=== PATIENT | male | born 1935 | race Hispanic/Latino ===

== ENCOUNTER 2019-04-19 09:42 | Emergency (ER) | payer MEDICARE ==
[2019-04-19 10:13] LABS: #Basophils 0.1 thou/uL (0.0-0.2); #Eosinphils 0.2 thou/uL (0.0-0.7); #Lymphocytes 2.2 thou/uL (1.20-3.40); #Monocytes 0.5 thou/uL (0.11-0.59); #Neutrophils 3.9 thou/uL (1.40-6.50); %Basophils 0.8 % (0.0-1.0); %Eosinophils 2.7 % (0.0-10.0); %Lymphocytes 32.4 % (21.0-51.0); %Monocytes 7.4 % (0.0-10.0); %Neutrophils 56.7 % (42.0-75.0); Hemoglobin 11.1 g/dL (14.0-18.0); Mean Corpuscular Hemoglobin 32.9 pg (27.0-31.0); Mean Corpuscular Volume 99.6 fL (78.0-98.0); Mean Platelet Volume 7.6 fL (7.4-10.4); Platelet Count 225 thou/uL (130-400); RBC Distribution Width 12.8 % (11.5-14.5); Red Blood Cell (RBC) Count 3.37 mill/uL (4.70-6.10); White Blood Cell (WBC) Count 6.9 thou/uL (4.8-10.8)
--- NOTE | 2019-04-19 10:21 | RAD ---
Exam: Chest one view HISTORY:Fever Comparison: 02/13/2017 FINDINGS: Lungs: No masses or consolidation. Cardiac silhouette: Normal size Pulmonary vessels: Normal Pleural Spaces: Clear Pneumothorax: None Vascular calcification is present. Osseous abnormalities: None of acuity. IMPRESSION: No focal consolidation.
[2019-04-19 10:42] LABS: ALT (SGPT) 9 U/L (8-55); AST (SGOT) 22 U/L (5-34); Albumin 3.1 g/dL (3.4-4.8); Alkaline Phosphatase 95 U/L (40-150); Anion Gap 13 mmol/L (10-20); BUN (Urea Nitrogen) 12 mg/dL (8.4-25.7); Bilirubin, Total 0.4 mg/dL (0.2-1.2); CK (CPK) 25 U/L (30-200); Calc. Creatinine Clearance 0 mL/min (70-130); Calcium 9.2 mg/dL (7.8-10.44); Carbon Dioxide 26 mmol/L (23-31); Chloride 106 mmol/L (98-107); Estimated GFR-MDRD Greater than 90; Globulin 3.3 g/dL (2.4-3.5); Glucose 88 mg/dL (83-110); Potassium 3.3 mmol/L (3.5-5.1); Protein, Total 6.4 g/dL (5.8-8.1); Sodium 142 mmol/L (136-145)
[2019-04-19 11:28] LABS: Bilirubin Negative (Negative); Blood, Urine Negative (Negative); Clarity Clear (Clear); Glucose, Urine (Dipstick) Normal (Negative); Leukocyte Negative Leu/uL (Negative); Nitrite Negative (Negative); Protein, Urine (Dipstick) Negative (Neg-Trace); Urobilinogen Normal mg/dL (Less than 2)
== END 2019-04-19 13:17 | disposition home or self-care (01) ==
LOC: ERS 09:42
DX: E86.0 Dehydration (principal); E78.5 Hyperlipidemia, unspecified; Z87.891 Personal history of nicotine dependence
CPT/HCPCS: 71045; 80053; 81003; 82550; 83605; 85025; 87040; 87086; 93005; 94760; 96360; 96361

== ENCOUNTER 2019-10-15 15:41 | Inpatient (IN) | payer MEDICARE ==
[2019-10-15 16:05] LABS: #Basophils 0.1 thou/uL (0.0-0.2); #Eosinphils 0.2 thou/uL (0.0-0.7); #Lymphocytes 4.9 thou/uL (1.20-3.40); #Neutrophils 5.4 thou/uL (1.40-6.50); %Basophils 0.9 % (0.0-1.0); %Eosinophils 1.9 % (0.0-10.0); %Monocytes 8.7 % (0.0-10.0); %Neutrophils 46.5 % (42.0-75.0); Hemoglobin 12.9 g/dL (14.0-18.0); Mean Corpuscular HGB CONC 31.7 g/dL (32.0-36.0); Mean Corpuscular Hemoglobin 32.4 pg (27.0-31.0); Mean Platelet Volume 7.9 fL (7.4-10.4); Platelet Count 252 thou/uL (130-400); RBC Distribution Width 12.3 % (11.5-14.5); Red Blood Cell (RBC) Count 3.99 mill/uL (4.70-6.10); White Blood Cell (WBC) Count 11.6 thou/uL (4.8-10.8)
[2019-10-15 16:23] LABS: ALT (SGPT) 9 U/L (8-55); AST (SGOT) 21 U/L (5-34); Albumin 3.7 g/dL (3.4-4.8); Alkaline Phosphatase 151 U/L (40-110); Anion Gap 19 mmol/L (10-20); BUN (Urea Nitrogen) 16 mg/dL (8.4-25.7); Bilirubin, Total 0.5 mg/dL (0.2-1.2); Calc. Creatinine Clearance 0 mL/min (70-130); Calcium 9.1 mg/dL (7.8-10.44); Carbon Dioxide 22 mmol/L (23-31); Chloride 105 mmol/L (98-107); Estimated GFR-MDRD Greater than 90; Globulin 3.8 g/dL (2.4-3.5); Glucose 130 mg/dL (83-110); Potassium 3.3 mmol/L (3.5-5.1); Protein, Total 7.5 g/dL (5.8-8.1); Sodium 143 mmol/L (136-145)
[2019-10-15 16:30] LABS: Bacteria/HPF 3+ HPF (None Seen); Bilirubin Negative (Negative); Blood, Urine 1+ (Negative); Clarity Turbid (Clear); Glucose, Urine (Dipstick) Normal (Negative); Leukocyte 500 Leu/uL (Negative); Mucous/LPF Rare LPF (<2+); Nitrite Negative (Negative); Protein, Urine (Dipstick) 70 mg/dL (Neg-Trace); RBC/HPF 0-3 HPF (0-3); Squamous Epithelial 0-3 HPF (0-3); Urobilinogen Normal mg/dL (Less than 2); WBC/HPF Greater than 50 HPF (0-3)
--- NOTE | 2019-10-15 16:34 | CT ---
CT Brain WO Con: 10/15/2019 3:50 PM CLINICAL HISTORY: Seizures. IMAGING TECHNIQUE: Multiple CT images were obtained of the brain without IV contrast. COMPARISON: Prior exam dated February 13, 2017 FINDINGS: Brain: There is been an interval remote cortical-based infarct involving the right parietal lobe. Ri ght occipital encephalomalacia is stable. Remote lacunar infarct involving the right caudate head is stable. Severe chronic small vessel white matter ischemic change is stable. No acute infarct, hemo rrhage or hydrocephalus is present. No midline shift is evident. Ventricles: Normal. No hydrocephalus.. Skull: Intact.. Visualized Paranasal sinuses: There is mild mucosal thickening within the left major sphenoid air mariano l which is stable.. Mastoid air cells:Clear. Extracranial soft tissues:Normal. IMPRESSION: No acute intracranial abnormality. Interval remote cortically based infarct involving the right parietal lobe. Stable right occipital lo be cortically based infarct. Stable right caudate head lacunar infarct and severe chronic small vessel white matter ischemic change.
[2019-10-15] MEDS ORDERED: Metoprolol Tartrate 5 MG/5 ML VIAL ONE (18:10)
[2019-10-15] MEDS ORDERED: Acetaminophen 650 MG Suppository PR PRN (18:24)
[2019-10-15] MEDS ORDERED: Acetaminophen 325 MG TAB PO PRN (18:24)
[2019-10-15] MEDS ORDERED: Metoprolol Tartrate 5 MG/5 ML VIAL IVP PRN (18:42)
[2019-10-15] MEDS ORDERED: levETIRAcetam In NaCl (Iso-Os) 1,500 MG in Premix Bag 1 BAG IVPB SCH ×3 (19:00→21:15)
[2019-10-15] MEDS ORDERED: Ondansetron PF 4 MG/2 ML Vial ONE (19:23)
[2019-10-15] MEDS ORDERED: Morphine 4 MG/ML VIAL ONE (19:23)
--- NOTE | 2019-10-15 19:31 | HP ---
CHIEF COMPLAINT: Seizure. PRIMARY CARE PROVIDER: Dr. Hoang Armijo. HISTORY OF PRESENT ILLNESS: This is an 84-year-old male with history of stroke, residual left visual field defects, difficulty writing with his left hand, seizure disorder, cardiomyopathy, dyslipidemia, history of anemia, who presents to the emergency room by EMS for complaint of seizure. All history is obtained from the patient's daughter, who lives with him. She reports he was getting out of the shower, leaned back, and had 2 seizures in a row that lasted a few minutes. His last seizure was in February of 2017, for which he was hospitalized. She reports prior to this, he was talking and in his usual state of health. She knows that he ate breakfast today, denies any significant changes in his health. She does note that he often forgets to take his medications despite her leaving them out for him. She thinks that he takes them maybe once a day or every other day, which includes his Keppra for known seizure disorder. She has not noticed any fevers or chills, states that he did complain his stomach was upset today, but did not visualize any vomiting. She reports that he has some bowel and bladder incontinence, that has been ongoing for few months. She denies any changes to his medications, any precipitating factors other than the missed medications. By report from the emergency room physician, the patient received Ativan 2 mg x2 in route to the emergency room. Here he has been significantly hypertensive and tachycardic, he is also not responsive but is protecting his airway. He has received metoprolol tartrate 5 mg IV, 1 L of normal saline, and Hospitalist called for admission. ALLERGIES: NO KNOWN DRUG ALLERGIES. CURRENT MEDICATIONS: Reconciled with the bottles; 1. Metoprolol tartrate 25 mg one-half tablet b.i.d. 2. Keppra 750 mg two tablets b.i.d. 3. Vitamin D3 of 2000 units daily. 4. Pravastatin 20 mg daily. 5. Pantoprazole 40 mg daily. 6. Iron 325 mg daily. 7. Multivitamin daily. 8. Aspirin 81 mg daily. 9. Memantine 5 mg tablets 1 in the morning, 2 at night. 10. Lisinopril 2.5 mg once daily. 11. Donepezil 10 mg at bedtime. 12. Quetiapine 50 mg at bedtime. PAST MEDICAL HISTORY: 1. Seizure disorder. 2. History of stroke in 2015 with left-sided deficits. 3. Dyslipidemia. 4. GERD. 5. Memory impairment. PAST SURGICAL HISTORY: 1. Cholecystectomy. 2. Kidney stone removal. FAMILY HISTORY: Significant for diabetes, heart disease, hypertension. SOCIAL HISTORY: The patient lives with his daughter, Karen Samayoa, who is his surrogate decision maker and she reports he is a full code. No alcohol or tobacco. REVIEW OF SYSTEMS: Only as noted above from the patient's daughter, no information is available from the patient. PHYSICAL EXAMINATION: VITAL SIGNS: Blood pressure 218/111, pulse 120, respirations 22, sat 97% on 2 L , temperature 98.4 rectal. GENERAL: The patient is asleep, does not respond to light touch. He is not in apparent distress. HEENT: His pupils are equal and pinpoint. No scleral icterus. Oral mucosa is pink and moist, there are multiple decayed teeth. NECK: Supple, nontender. LYMPHATICS: No palpable cervical or supraclavicular lymphadenopathy. LUNGS: Clear to auscultation. No audible wheezing, rhonchi, or rales. HEART: Normal S1, S2. Regular rate and rhythm. No significant murmur. ABDOMEN: Soft. Present bowel sounds. Nontender. Nondistended. EXTREMITIES: No edema. VASCULAR: 2+ dorsalis pedis pulses. SKIN: No visible rashes. NEURO: Unable to assess. PSYCH: Unable to assess. LABORATORY DATA: CBC; 11.6, 12.9, 40.7, 252 with an MCV of 102. Renal panel; 143, 3.3, 105, 22, 16, 0.79, 130. AST 21, ALT 9, total bilirubin 0.5, alkaline phosphatase 151, total protein 7.5, albumin 3.7. Troponin 0.027. Urinalysis; present protein 500, leukocyte esterase, greater than 50 white blood cells, 3+ bacteria, 0 to 3 squamous cells. DIAGNOSTIC DATA: CT of the brain shows no acute intracranial abnormality, interval remote cortically based infarct involving the right parietal lobe, stable right occipital lobe cortically based infarct, stable right caudate head lacunar infarct and severe chronic small-vessel white matter ischemic changes. EKG shows sinus tachycardia with a rate of 120s. No ST changes. IMPRESSION: 1. Seizure disorder with a reported history of nonadherence to medication therapy, in a patient with known history. 2. Urinary tract infection based on urinalysis as well as leukocytosis. 3. Malignant hypertension. 4. History of stroke, cognitive impairment. 5. Sinus tachycardia. 6. Dyslipidemia. 7. Gastroesophageal reflux disease. 8. Hypokalemia, mild. PLAN: 1. Observation status in the hospital. 2. Monitoring on telemetry, given the tachycardia. 3. Managing the blood pressure with IV hydralazine as well as IV metoprolol to help with the heart rate, I am uncertain on why both of these are significantly elevated. 4. We will use Keppra IV until adequately taking p.o. at the same as his home dosing. 5. We will order his home medications with a communication order to the nurse that he can resume these when able to take p.o. 6. Seizure precautions, IV Ativan as needed. 7. Given the patient's cognitive function in general, and the dose of Ativan that he received, discussed with his daughter that it may be a day or two until he is arousable. He is protecting his airway, there is no indication for intubation. 8. Holding on Neurology consultation as this appears to be non-adherence to medication rather than breakthrough seizure. 9. Replace potassium, IV fluid for hydration. Monitor urine output. 10. Starting Rocephin for UTI, and adjust antibiotic therapy based on the urine culture. 11. DVT prophylaxis with pneumatic compression devices. 12. GI prophylaxis. We will order Protonix. Anticipate the patient should be able to take p.o. tomorrow, and he is on it at home. 13. Code status is full. Surrogate decision maker is his daughter, Karen. Reviewed the plan of care with the patient's daughter, as well as the concerns noted above. No questions or further needs at end of evaluation. The patient is at high risk, given age comorbidities and current presentation. Job ID: [id number] MTDD
[2019-10-15] MEDS: Donepezil HCl 10 MG TAB PO SCH (22:43)
[2019-10-15] MEDS: Metoprolol Tartrate 25 MG TAB PO SCH (22:43)
[2019-10-15] MEDS: Pravastatin Sodium 20 MG TAB PO SCH (22:43)
[2019-10-15] MEDS: cefTRIAXone\\ROCEPHIN 1 GM in Sodium Chloride 0.9% 100 ML IVPB SCH (22:54)
[2019-10-16] MEDS: NS 0.9% w/ 40 MEQ KCL 1,000 ML IV SCH ×2 (00:40→12:53)
[2019-10-16 04:53] LABS: Anion Gap 14 mmol/L (10-20); BUN (Urea Nitrogen) 11 mg/dL (8.4-25.7); Calc. Creatinine Clearance 0 mL/min (70-130); Calcium 8.6 mg/dL (7.8-10.44); Carbon Dioxide 26 mmol/L (23-31); Chloride 100 mmol/L (98-107); Estimated GFR-MDRD Greater than 90; Glucose 106 mg/dL (83-110); Potassium 3.8 mmol/L (3.5-5.1); Sodium 136 mmol/L (136-145)
[2019-10-16 05:47] LABS: #Lymphocytes 1.2 thou/uL (1.20-3.40); #Monocytes 0.8 thou/uL (0.11-0.59); #Neutrophils 11.9 thou/uL (1.40-6.50); %Basophils 0.1 % (0.0-1.0); %Eosinophils 0.1 % (0.0-10.0); %Lymphocytes 8.9 % (21.0-51.0); %Monocytes 5.8 % (0.0-10.0); %Neutrophils 85.2 % (42.0-75.0); Hemoglobin 12.4 g/dL (14.0-18.0); Mean Corpuscular HGB CONC 32.2 g/dL (32.0-36.0); Mean Corpuscular Hemoglobin 32.2 pg (27.0-31.0); Mean Platelet Volume 7.6 fL (7.4-10.4); Platelet Count 237 thou/uL (130-400); RBC Distribution Width 12.3 % (11.5-14.5); Red Blood Cell (RBC) Count 3.83 mill/uL (4.70-6.10)
[2019-10-16] MEDS: levETIRAcetam In NaCl (Iso-Os) 1,500 MG in Premix Bag 1 BAG IVPB SCH ×2 (08:14→21:26)
[2019-10-16] MEDS: Lisinopril 2.5 MG TAB PO SCH (08:19)
[2019-10-16] MEDS: Aspirin 81 mg Enteric Coated Tablet PO SCH (08:19)
[2019-10-16] MEDS: Metoprolol Tartrate 25 MG TAB PO SCH ×2 (08:19→21:28)
--- NOTE | 2019-10-16 10:05 | PDOC.HOSPP ---
- Subjective Encounter Date: 10/16/19 Encounter Time: 12:20 non-verbal Subjective: Patient not waking up this AM, just mutters and grabs if blankets pulled off head. Family reports that patient prefers to sleep with head covered. I spoke with Serafin working with Dr. Jacques, states that patient seen in office recently, has f/u appointment. Family states that patient usually takes a couple days to wake up after a seizure. Will observe and if not starting a wake up after a couple days will consult neurology. - Objective Vital Signs & Weight: Vital Signs (12 hours) Temp Pulse Resp BP Pulse Ox 10/16/19 07:14 98.5 F 73 18 154/73 H 97 10/16/19 03:45 98.3 F 78 20 173/81 H 98 10/16/19 00:45 98.1 F 74 18 157/75 H 98 Weight Weight 92 lb 4.8 oz Result Diagrams: 10/16/19 05:29 10/16/19 03:59 Hospitalist ROS - Review of Systems ROS unobtainable: due to mental status - Medication Medications: Active Medications Generic Name Dose Route Start Last Admin Trade Name Freq PRN Reason Stop Dose Admin Aspirin 81 mg 10/16/19 09:00 10/16/19 08:19 Ecotrin PO Not Given DAILY LILY Donepezil HCl 10 mg 10/15/19 21:00 10/15/19 22:43 Aricept PO Not Given HS LILY Ceftriaxone Sodium 1 gm/ 100 mls @ 200 mls/hr 10/15/19 20:00 10/15/19 22:54 Sodium Chloride IVPB 100 mls Q24HR LILY Administration Potassium Chloride/Sodium Chloride 1,000 mls @ 75 mls/hr 10/15/19 18:45 10/16 00:40 Ns 0.9% W/ 40 Meq Kcl IV 1,000 mls .[id number] LILY Administration Levetiracetam 1,500 mg/ Device 100 mls @ 200 mls/hr 10/16/19 09:00 10/16/19 08:14 IVPB 100 mls BID LILY Administration Lisinopril 2.5 mg 10/16/19 09:00 10/16/19 08:19 Zestril PO Not Given DAILY LILY Memantine 5 mg 10/16/19 09:00 10/16/19 08:19 Namenda PO Not Given DAILY [facility] Memantine 10 mg 10/15/19 21:00 10/15/19 22:43 Namenda PO Not Given HS [facility] Metoprolol Tartrate 12.5 mg 10/15/19 21:00 10/16/19 08:19 Lopressor PO Not Given BID LILY Pantoprazole Sodium 40 mg 10/16/19 09:00 10/16/19 08:19 Protonix PO Not Given DAILY [facility] Pravastatin Sodium 20 mg 10/15/19 21:00 10/15/19 22:43 Pravachol PO Not Given HS [facility] Quetiapine Fumarate 50 mg 10/15/19 21:00 10/15/19 22:43 Seroquel PO Not Given HS [facility] Sodium Chloride 10 ml 10/15/19 21:00 10/16/19 08:19 Flush - Normal Saline IVF Not Given Q12HR LILY - Exam General - other findings: somnolent, no distress Heart: RRR, no murmur, no gallops, no rubs Respiratory: CTAB, no wheezes, no rales, no ronchi Gastrointestinal: soft, non-tender, non-distended, normal bowel sounds Neurological - other findings: moving all extremities to push away when stimulated of blanket removed Psychiatric: somnolent Hosp A/P (1) Seizure Code(s): R56.9 - UNSPECIFIED CONVULSIONS Status: Acute (2) UTI (urinary tract infection) Status: Acute (3) Sepsis Code(s): A41.9 - SEPSIS, UNSPECIFIED ORGANISM Status: Acute Plan: tachycardic, leukocytosis on presentation (4) Hypertension Code(s): I10 - ESSENTIAL (PRIMARY) HYPERTENSION Status: Acute Qualifiers: Hypertension type: essential hypertension Qualified Code(s): I10 - Essential (primary) hypertension (5) Hypokalemia Code(s): E87.6 - HYPOKALEMIA Status: Resolved - Plan PT/OT, out of bed/ambulate Patient back on home medication UTI with sepsis criteria on presentation to ER, on Rocephin, growing back E. coli in urine Currently still postictal, consult neurology if he doesn't wake up in a couple days like it usually takes him PT/OT, make sure ambulating well once wakes up from the seizure DVT proph: SCDs
[2019-10-16] MEDS: hydrALAZINE 20 MG/ML VIAL SLOW IVP PRN (15:39)
[2019-10-16] MEDS: Lorazepam 2 MG/ML VIAL SLOW IVP PRN (16:24)
[2019-10-16] MEDS: cefTRIAXone\\ROCEPHIN 1 GM in Sodium Chloride 0.9% 100 ML IVPB SCH (19:41)
[2019-10-16] MEDS: Donepezil HCl 10 MG TAB PO SCH (21:28)
[2019-10-16] MEDS: Pravastatin Sodium 20 MG TAB PO SCH (21:28)
[2019-10-16] MEDS: Ferrous Sulfate 325 MG TAB PO SCH (21:28)
[2019-10-17] MEDS: Lorazepam 2 MG/ML VIAL SLOW IVP PRN (00:05)
[2019-10-17] MEDS: NS 0.9% w/ 40 MEQ KCL 1,000 ML IV SCH ×2 (06:10→19:57)
[2019-10-17] MEDS: Ferrous Sulfate 325 MG TAB PO SCH ×2 (08:01→20:00)
[2019-10-17] MEDS: Aspirin 81 mg Enteric Coated Tablet PO SCH (08:01)
[2019-10-17] MEDS: Lisinopril 2.5 MG TAB PO SCH (08:01)
[2019-10-17] MEDS: Multivitamin W/ Minerals 1 TAB PO SCH (08:02)
[2019-10-17] MEDS: Metoprolol Tartrate 25 MG TAB PO SCH ×2 (08:02→20:00)
--- NOTE | 2019-10-17 08:26 | PDOC.HOSPP ---
- Subjective Encounter Date: 10/17/19 Encounter Time: 10:40 Subjective: Patient still groggy this AM and not talking. On speaking with the nurse it appears that the patient was given his prn Seizure ativan for some agitation last night. Will make sure no more sedating medications are given to allow him to wake up fully. He actually appears more alert to me today than yesterday. - Objective Vital Signs & Weight: Vital Signs (12 hours) Temp Pulse Resp BP Pulse Ox 10/17/19 07:55 97.5 F L 65 15 188/88 H 97 10/17/19 04:59 157/71 H 10/17/19 04:00 98.4 F 62 16 186/82 H 99 Weight Admit Weight 92 lb Weight 92 lb 4.8 oz I&O: 10/16/19 10/17/19 10/18/19 06:59 06:59 06:59 Intake Total 1956 Balance 1956 Result Diagrams: 10/16/19 05:29 10/16/19 03:59 Hospitalist ROS - Review of Systems ROS unobtainable: due to mental status - Medication Medications: Active Medications Generic Name Dose Route Start Last Admin Trade Name Freq PRN Reason Stop Dose Admin Aspirin 81 mg 10/16/19 09:00 10/17/19 08:01 Ecotrin PO Not Given DAILY [facility] Cholecalciferol 2,000 units 10/17/19 09:00 10/17/19 08:01 Vitamin D3 PO Not Given DAILY LILY Donepezil HCl 10 mg 10/15/19 21:00 10/16/19 21:28 Aricept PO Not Given HS LILY Ferrous Sulfate 325 mg 10/16/19 21:00 10/17/19 08:01 Feosol PO Not Given BID LILY Hydralazine HCl 10 mg 10/15/19 18:26 10/16/19 15:39 Apresoline SLOW IVP 10 mg Q4H PRN Administration SBP Greater Than 180 Ceftriaxone Sodium 1 gm/ 100 mls @ 200 mls/hr 10/15/19 20:00 10/16/19 19:41 Sodium Chloride IVPB 100 mls Q24HR LILY Administration Potassium Chloride/Sodium Chloride 1,000 mls @ 75 mls/hr 10/15/19 18:45 10/17 06:10 Ns 0.9% W/ 40 Meq Kcl IV 1,000 mls .[id number] LILY Administration Levetiracetam 1,500 mg/ Device 100 mls @ 200 mls/hr 10/16/19 09:00 10/16/19 21:26 IVPB 100 mls BID LILY Administration Iron/Minerals/Multivitamins 1 tab 10/17/19 09:00 10/17/19 08:02 Theragran M PO Not Given DAILY LILY Lisinopril 2.5 mg 10/16/19 09:00 10/17/19 08:01 Zestril PO Not Given DAILY LILY Lorazepam 1 mg 10/15/19 18:24 10/17/19 00:05 Ativan SLOW IVP 1 mg Q15MIN PRN Administration Seizures Memantine 5 mg 10/16/19 09:00 10/17/19 08:01 Namenda PO Not Given DAILY LILY Memantine 10 mg 10/15/19 21:00 10/16/19 21:28 Namenda PO Not Given HS LILY Metoprolol Tartrate 12.5 mg 10/15/19 21:00 10/17/19 08:02 Lopressor PO Not Given BID LILY Pantoprazole Sodium 40 mg 10/16/19 09:00 10/17/19 08:02 Protonix PO Not Given DAILY LILY Pravastatin Sodium 20 mg 10/15/19 21:00 10/16/19 21:28 Pravachol PO Not Given HS [facility] Quetiapine Fumarate 50 mg 10/15/19 21:00 10/16/19 21:28 Seroquel PO Not Given HS [facility] Sodium Chloride 10 ml 10/15/19 21:00 10/16/19 21:29 Flush - Normal Saline IVF 10 ml Q12HR LILY Administration - Exam General Appearance: NAD ENT: moist mucosa Heart: RRR, no murmur, no gallops, no rubs Respiratory: CTAB, no wheezes, no rales, no ronchi Gastrointestinal: soft, non-tender, non-distended, normal bowel sounds Neurological - other findings: moving all limbs equally Psychiatric - other findings: opens eyes, mutters but not understandable, not following commands Hosp A/P (1) Seizure Code(s): R56.9 - UNSPECIFIED CONVULSIONS Status: Acute (2) UTI (urinary tract infection) Status: Acute (3) Sepsis Code(s): A41.9 - SEPSIS, UNSPECIFIED ORGANISM Status: Acute (4) Hypertension Code(s): I10 - ESSENTIAL (PRIMARY) HYPERTENSION Status: Acute Qualifiers: Hypertension type: essential hypertension Qualified Code(s): I10 - Essential (primary) hypertension (5) Hypokalemia Code(s): E87.6 - HYPOKALEMIA Status: Resolved - Plan Patient back on home medication UTI with sepsis criteria on presentation to ER, on Rocephin, growing back pansensitive E. coli, can go home on Omnicef Currently still postictal, consult neurology if he doesn't wake up in a couple days like it usually takes him Avoid sedating medications PT/OT, make sure ambulating well once wakes up from the seizure DVT proph: SCDs
[2019-10-17] MEDS: hydrALAZINE 20 MG/ML VIAL SLOW IVP PRN ×2 (10:02→19:59)
[2019-10-17] MEDS: levETIRAcetam In NaCl (Iso-Os) 1,500 MG in Premix Bag 1 BAG IVPB SCH ×2 (10:02→19:57)
[2019-10-17] MEDS: cefTRIAXone\\ROCEPHIN 1 GM in Sodium Chloride 0.9% 100 ML IVPB SCH (19:57)
[2019-10-17] MEDS: Donepezil HCl 10 MG TAB PO SCH (20:00)
[2019-10-17] MEDS: Pravastatin Sodium 20 MG TAB PO SCH (20:00)
[2019-10-18] MEDS: hydrALAZINE 20 MG/ML VIAL SLOW IVP PRN ×2 (04:06→17:41)
[2019-10-18] MEDS: NS 0.9% w/ 40 MEQ KCL 1,000 ML IV SCH ×2 (09:04→12:40)
[2019-10-18] MEDS: levETIRAcetam In NaCl (Iso-Os) 1,500 MG in Premix Bag 1 BAG IVPB SCH (09:58)
[2019-10-18] MEDS: Aspirin 81 mg Enteric Coated Tablet PO SCH (10:02)
[2019-10-18] MEDS: Ferrous Sulfate 325 MG TAB PO SCH ×2 (10:03→21:21)
[2019-10-18] MEDS: Lisinopril 2.5 MG TAB PO SCH (10:03)
[2019-10-18] MEDS: Multivitamin W/ Minerals 1 TAB PO SCH (10:09)
[2019-10-18] MEDS: Metoprolol Tartrate 25 MG TAB PO SCH ×2 (10:09→21:20)
--- NOTE | 2019-10-18 17:29 | PDOC.HOSPP ---
- Subjective Encounter Date: 10/18/19 Encounter Time: 17:25 Subjective: f/u metabolic encephalopathy, seizure disorder, UTI with E. coli on Rocephin. No new issues. Remains confused per daughter. - Objective Vital Signs & Weight: Vital Signs (12 hours) Temp Pulse Resp BP BP Pulse Ox 10/18/19 15:43 98.3 F 83 16 128/90 100 10/18/19 11:12 98.4 F 85 16 131/88 100 10/18/19 10:07 100 10/18/19 10:03 91 158/72 H 10/18/19 08:35 140/70 10/18/19 07:57 98.0 F 86 18 166/79 H 100 Weight Admit Weight 92 lb 4.8 oz Weight 95 lb 12.8 oz I&O: 10/17/19 10/18/19 10/19/19 06:59 06:59 06:59 Intake Total 1956 1999 Balance 1956 1999 Result Diagrams: 10/16/19 05:29 10/16/19 03:59 Additional Labs: Microbiology 10/15/19 16:15 Urine Straight Catheter Urine Culture - Final Escherichia coli Laboratory Tests 10/15/19 10/15/19 15:46 15:46 WBC 11.6 H Hgb 12.9 L Potassium 3.3 L Radiology Reviewed by me: Yes (CT brain - no acute process, chronic white matter isch changes) EKG Reviewed by me: Yes (Tele - SR) Hospitalist ROS - Medication Medications: Active Medications Generic Name Dose Route Start Last Admin Trade Name Freq PRN Reason Stop Dose Admin Aspirin 81 mg 10/16/19 09:00 10/18/19 10:02 Ecotrin PO 81 mg DAILY LILY Administration Cholecalciferol 2,000 units 10/17/19 09:00 10/18/19 10:03 Vitamin D3 PO 2,000 units DAILY LILY Administration Donepezil HCl 10 mg 10/15/19 21:00 10/17/19 20:00 Aricept PO Not Given HS LILY Ferrous Sulfate 325 mg 10/16/19 21:00 10/18/19 10:03 Feosol PO 325 mg BID LILY Administration Hydralazine HCl 10 mg 10/15/19 18:26 10/18/19 04:06 Apresoline SLOW IVP 10 mg Q4H PRN Administration SBP Greater Than 180 Ceftriaxone Sodium 1 gm/ 100 mls @ 200 mls/hr 10/15/19 20:00 10/17/19 19:57 Sodium Chloride IVPB 100 mls Q24HR LILY Administration Potassium Chloride/Sodium Chloride 1,000 mls @ 75 mls/hr 10/15/19 18:45 10/18 12:40 Ns 0.9% W/ 40 Meq Kcl IV 1,000 mls .[id number] LILY Administration Iron/Minerals/Multivitamins 1 tab 10/17/19 09:00 10/18/19 10:09 Theragran M PO 1 tab DAILY LILY Administration Lisinopril 2.5 mg 10/16/19 09:00 10/18/19 10:03 Zestril PO 2.5 mg DAILY LILY Administration Lorazepam 1 mg 10/15/19 18:24 10/17/19 00:05 Ativan SLOW IVP 1 mg Q15MIN PRN Administration Seizures Memantine 5 mg 10/16/19 09:00 10/18/19 10:09 Namenda PO 5 mg DAILY LILY Administration Memantine 10 mg 10/15/19 21:00 10/17/19 20:00 Namenda PO Not Given HS LILY Metoprolol Tartrate 12.5 mg 10/15/19 21:00 10/18/19 10:09 Lopressor PO 12.5 mg BID LILY Administration Pantoprazole Sodium 40 mg 10/16/19 09:00 10/18/19 10:09 Protonix PO 40 mg DAILY LILY Administration Pravastatin Sodium 20 mg 10/15/19 21:00 10/17/19 20:00 Pravachol PO Not Given HS LILY Quetiapine Fumarate 50 mg 10/15/19 21:00 10/17/19 20:01 Seroquel PO Not Given HS LILY Sodium Chloride 10 ml 10/15/19 21:00 10/18/19 10:10 Flush - Normal Saline IVF 10 ml Q12HR LILY Administration - Exam General Appearance: awake alert Eye: PERRL, anicteric sclera ENT: normocephalic atraumatic, no oropharyngeal lesions Neck: supple, symmetric, no JVD, no thyromegaly Heart: RRR, no gallops, no rubs, normal peripheral pulses Respiratory: normal chest expansion Respiratory - other findings: few scattered rhonchi Gastrointestinal: soft, non-tender, non-distended, normal bowel sounds, no palpable masses Extremities: no cyanosis, no clubbing, no edema Skin: normal turgor, no lesions Neurological: cranial nerve grossly intact Musculoskeletal: generalized weakness, diffuse muscle atrophy Psychiatric: oriented to person, flat affect Hosp A/P (1) Acute metabolic encephalopathy Code(s): G93.41 - METABOLIC ENCEPHALOPATHY Status: Acute Plan: Persistent, multifactorial, serial neuro exams, limit psychotropes and sedation (2) Sepsis Code(s): A41.9 - SEPSIS, UNSPECIFIED ORGANISM Status: Acute Plan: Secondary to UTI, resolving (3) UTI (urinary tract infection) Status: Acute Plan: Secondary to E. coli, continue Rocephin 1gm IV daily, pansensitive organism (4) Seizure Code(s): R56.9 - UNSPECIFIED CONVULSIONS Status: Chronic Plan: Convert Keppra 1500mg po BID - Plan plan discussed w/ family, continue antibiotics, PT/OT, child protective services social worker, speech therapy, out of bed/ambulate, DVT proph w/SCDs Stable currently Continue Rocephin 1gm IV daily OOB with PT [employer] for dietary modifications CM for HH with PT options Likely home in 48h
[2019-10-18] MEDS ORDERED: levETIRAcetam 500 MG TAB PO SCH (21:00)
[2019-10-18] MEDS: cefTRIAXone\\ROCEPHIN 1 GM in Sodium Chloride 0.9% 100 ML IVPB SCH (21:18)
[2019-10-18] MEDS: Pravastatin Sodium 20 MG TAB PO SCH (21:20)
[2019-10-18] MEDS: Donepezil HCl 10 MG TAB PO SCH (21:21)
[2019-10-18] MEDS: levETIRAcetam 500 mg/5 ml Oral Solution PO SCH (21:35)
[2019-10-19] MEDS: NS 0.9% w/ 40 MEQ KCL 1,000 ML IV SCH ×2 (03:25→17:14)
[2019-10-19] MEDS: Metoprolol Tartrate 25 MG TAB PO SCH ×2 (08:36→20:49)
[2019-10-19] MEDS: Aspirin 81 mg Enteric Coated Tablet PO SCH (08:36)
[2019-10-19] MEDS: levETIRAcetam 500 mg/5 ml Oral Solution PO SCH ×2 (08:36→20:49)
[2019-10-19] MEDS: Multivitamin W/ Minerals 1 TAB PO SCH (08:37)
[2019-10-19] MEDS: Ferrous Sulfate 325 MG TAB PO SCH ×2 (08:37→20:49)
[2019-10-19] MEDS: Lisinopril 2.5 MG TAB PO SCH (08:37)
--- NOTE | 2019-10-19 17:21 | PDOC.HOSPP ---
- Subjective Encounter Date: 10/19/19 Encounter Time: 17:20 Subjective: f/u for metabolic encephalopathy, UTI with E. coli and seizure disorder. Nursing reports pt slept poorly overnight but no seizure activity. Remains confused. - Objective Vital Signs & Weight: Vital Signs (12 hours) Temp Pulse Pulse Pulse Resp BP BP 10/19/19 15:00 97.8 F 69 14 10/19/19 11:20 98.5 F 76 15 10/19/19 10:32 70 73 167/77 H 10/19/19 10:20 10/19/19 08:37 75 181/86 H 10/19/19 08:00 98.1 F 75 18 BP BP Pulse Ox 10/19/19 15:00 143/66 H 94 L 10/19/19 11:20 145/68 H 94 L 10/19/19 10:32 183/81 H 10/19/19 10:20 96 10/19/19 08:37 10/19/19 08:00 181/86 H 96 Weight Admit Weight 92 lb 4.8 oz Weight 95 lb 5 oz I&O: 10/18/19 10/19/19 10/20/19 06:59 06:59 06:59 Intake Total 1999 1785 Balance 1999 1785 Result Diagrams: 10/16/19 05:29 10/16/19 03:59 Additional Labs: Microbiology 10/15/19 16:15 Urine Straight Catheter Urine Culture - Final Escherichia coli Laboratory Tests 10/15/19 10/15/19 15:46 15:46 WBC 11.6 H Hgb 12.9 L Potassium 3.3 L EKG Reviewed by me: Yes (Tele - SR) Hospitalist ROS - Medication Medications: Active Medications Generic Name Dose Route Start Last Admin Trade Name Freq PRN Reason Stop Dose Admin Aspirin 81 mg 10/16/19 09:00 10/19/19 08:36 Ecotrin PO 81 mg DAILY LILY Administration Cholecalciferol 2,000 units 10/17/19 09:00 10/19/19 08:36 Vitamin D3 PO 2,000 units DAILY LILY Administration Donepezil HCl 10 mg 10/15/19 21:00 10/18/19 21:21 Aricept PO 10 mg HS LILY Administration Ferrous Sulfate 325 mg 10/16/19 21:00 10/19/19 08:37 Feosol PO 325 mg BID LILY Administration Hydralazine HCl 10 mg 10/15/19 18:26 10/18/19 17:41 Apresoline SLOW IVP 10 mg Q4H PRN Administration SBP Greater Than 180 Ceftriaxone Sodium 1 gm/ 100 mls @ 200 mls/hr 10/15/19 20:00 10/18/19 21:18 Sodium Chloride IVPB 100 mls Q24HR LILY Administration Potassium Chloride/Sodium Chloride 1,000 mls @ 75 mls/hr 10/15/19 18:45 10/19 17:14 Ns 0.9% W/ 40 Meq Kcl IV 1,000 mls .[id number] LILY Administration Iron/Minerals/Multivitamins 1 tab 10/17/19 09:00 10/19/19 08:37 Theragran M PO 1 tab DAILY LILY Administration Levetiracetam 1,500 mg 10/18/19 21:00 10/19/19 08:36 Keppra Oral Solution PO 1,500 mg BID LILY Administration Lisinopril 2.5 mg 10/16/19 09:00 10/19/19 08:37 Zestril PO 2.5 mg DAILY LILY Administration Lorazepam 1 mg 10/15/19 18:24 10/17/19 00:05 Ativan SLOW IVP 1 mg Q15MIN PRN Administration Seizures Memantine 5 mg 10/16/19 09:00 10/19/19 08:37 Namenda PO 5 mg DAILY LILY Administration Memantine 10 mg 10/15/19 21:00 10/18/19 21:21 Namenda PO 10 mg HS LILY Administration Metoprolol Tartrate 12.5 mg 10/15/19 21:00 10/19/19 08:36 Lopressor PO 12.5 mg BID LILY Administration Pantoprazole Sodium 40 mg 10/16/19 09:00 10/19/19 08:37 Protonix PO 40 mg DAILY LILY Administration Pravastatin Sodium 20 mg 10/15/19 21:00 10/18/19 21:20 Pravachol PO 20 mg HS LILY Administration Quetiapine Fumarate 50 mg 10/15/19 21:00 10/18/19 21:21 Seroquel PO 50 mg HS LILY Administration Sodium Chloride 10 ml 10/15/19 21:00 10/19/19 08:38 Flush - Normal Saline IVF 10 ml Q12HR LILY Administration - Exam General Appearance: NAD, awake alert Eye: PERRL, anicteric sclera ENT: normocephalic atraumatic, no oropharyngeal lesions Neck: supple, symmetric, no JVD, no thyromegaly Heart: RRR, no gallops, no rubs, normal peripheral pulses Respiratory: CTAB, no wheezes, no rales, no ronchi Gastrointestinal: soft, non-tender, non-distended, normal bowel sounds Extremities: no cyanosis, no clubbing, no edema Skin: normal turgor, no lesions Neurological: no new deficit Musculoskeletal: normal tone, generalized weakness Psychiatric: oriented to person Hosp A/P (1) Acute metabolic encephalopathy Code(s): G93.41 - METABOLIC ENCEPHALOPATHY Status: Acute Plan: Persistent, slow improvement, multifactorial given UTI, delirium and dementia (2) Sepsis Code(s): A41.9 - SEPSIS, UNSPECIFIED ORGANISM Status: Acute Plan: Resolved (3) UTI (urinary tract infection) Status: Acute Plan: E. coli pansensitive, continue Rocephin (4) Seizure Code(s): R56.9 - UNSPECIFIED CONVULSIONS Status: Chronic Plan: Chronic disorder, continue Keppra 1500mg BID - Plan continue antibiotics, PT/OT, criminal justice social worker, speech therapy, out of bed/ ambulate, DVT proph w/SCDs Stable currently Continue Rocephin 1gm IV daily OOB with PT MESMERIST for dietary modifications CM for HH with PT options Transfer to medical floor Likely home in 24h
[2019-10-19] MEDS: cefTRIAXone\\ROCEPHIN 1 GM in Sodium Chloride 0.9% 100 ML IVPB SCH (20:48)
[2019-10-19] MEDS: Donepezil HCl 10 MG TAB PO SCH (20:49)
[2019-10-19] MEDS: Pravastatin Sodium 20 MG TAB PO SCH (20:50)
[2019-10-20] MEDS: NS 0.9% w/ 40 MEQ KCL 1,000 ML IV SCH ×3 (00:01→14:34)
[2019-10-20] MEDS: Aspirin 81 mg Enteric Coated Tablet PO SCH (09:12)
[2019-10-20] MEDS: Metoprolol Tartrate 25 MG TAB PO SCH ×2 (09:14→20:31)
[2019-10-20] MEDS: Multivitamin W/ Minerals 1 TAB PO SCH (09:14)
[2019-10-20] MEDS: Ferrous Sulfate 325 MG TAB PO SCH ×2 (09:14→20:31)
[2019-10-20] MEDS: Lisinopril 2.5 MG TAB PO SCH (09:24)
[2019-10-20] MEDS: levETIRAcetam 500 mg/5 ml Oral Solution PO SCH ×2 (09:27→20:31)
--- NOTE | 2019-10-20 15:23 | PDOC.HOSPP ---
- Subjective Encounter Date: 10/20/19 Encounter Time: 10:15 Subjective: pt up in bed more awake today. - Objective Vital Signs & Weight: Vital Signs (12 hours) Temp Pulse Resp BP BP Pulse Ox 10/20/19 10:49 98.3 F 61 20 165/70 H 96 10/20/19 09:24 73 184/86 H 10/20/19 07:44 98.1 F 73 20 189/84 H 96 10/20/19 04:00 97.8 F 82 16 151/76 H 96 Weight Admit Weight 92 lb 4.8 oz Weight 96 lb 2 oz I&O: 10/19/19 10/20/19 10/21/19 06:59 06:59 06:59 Intake Total 1785 995 Balance 1785 995 Result Diagrams: 10/16/19 05:29 10/16/19 03:59 Hospitalist ROS - Review of Systems Respiratory: denies: cough, dry, shortness of breath, hemoptysis, SOB with excertion, pleuritic pain, sputum, wheezing, other Cardiovascular: denies: chest pain, palpitations, orthopnea, paroxysmal noc. dyspnea, edema, light headedness, other Gastrointestinal: denies: nausea, vomiting, abdominal pain, diarrhea, constipation, melena, hematochezia, other - Medication Medications: Active Medications Generic Name Dose Route Start Last Admin Trade Name Freq PRN Reason Stop Dose Admin Aspirin 81 mg 10/16/19 09:00 10/20/19 09:12 Ecotrin PO 81 mg DAILY LILY Administration Cholecalciferol 2,000 units 10/17/19 09:00 10/20/19 09:12 Vitamin D3 PO 2,000 units DAILY LILY Administration Donepezil HCl 10 mg 10/15/19 21:00 10/19/19 20:49 Aricept PO 10 mg HS LILY Administration Ferrous Sulfate 325 mg 10/16/19 21:00 10/20/19 09:14 Feosol PO 325 mg BID LILY Administration Hydralazine HCl 10 mg 10/15/19 18:26 10/18/19 17:41 Apresoline SLOW IVP 10 mg Q4H PRN Administration SBP Greater Than 180 Ceftriaxone Sodium 1 gm/ 100 mls @ 200 mls/hr 10/15/19 20:00 10/19/19 20:48 Sodium Chloride IVPB 100 mls Q24HR LILY Administration Potassium Chloride/Sodium Chloride 1,000 mls @ 75 mls/hr 10/15/19 18:45 10/20 14:34 Ns 0.9% W/ 40 Meq Kcl IV Not Given .[id number] LILY Iron/Minerals/Multivitamins 1 tab 10/17/19 09:00 10/20/19 09:14 Theragran M PO 1 tab DAILY LILY Administration Levetiracetam 1,500 mg 10/18/19 21:00 10/20/19 09:27 Keppra Oral Solution PO 1,500 mg BID LILY Administration Lisinopril 2.5 mg 10/16/19 09:00 10/20/19 09:24 Zestril PO 2.5 mg DAILY LILY Administration Lorazepam 1 mg 10/15/19 18:24 10/17/19 00:05 Ativan SLOW IVP 1 mg Q15MIN PRN Administration Seizures Memantine 5 mg 10/16/19 09:00 10/20/19 09:12 Namenda PO 5 mg DAILY LILY Administration Memantine 10 mg 10/15/19 21:00 10/19/19 20:49 Namenda PO 10 mg HS LILY Administration Metoprolol Tartrate 12.5 mg 10/15/19 21:00 10/20/19 09:14 Lopressor PO 12.5 mg BID LILY Administration Pantoprazole Sodium 40 mg 10/16/19 09:00 10/20/19 09:14 Protonix PO 40 mg DAILY LILY Administration Pravastatin Sodium 20 mg 10/15/19 21:00 10/19/19 20:50 Pravachol PO 20 mg HS LILY Administration Quetiapine Fumarate 50 mg 10/15/19 21:00 10/19/19 20:51 Seroquel PO 50 mg HS LILY Administration Sodium Chloride 10 ml 10/15/19 21:00 10/20/19 09:15 Flush - Normal Saline IVF 10 ml Q12HR LILY Administration - Exam Neck: negative: supple, symmetric, no JVD, no thyromegaly, no lymphadenopathy, no carotid bruit, JVD Heart: negative: RRR, no murmur, no gallops, no rubs, normal peripheral pulses, irregular, diminshed peripheral pulses, murmur present, II/IV, III/IV Respiratory: negative: CTAB, no wheezes, no rales, no ronchi, normal chest expansion, no tachypnea, normal percussion, rales, rhonchi, tachypneic, wheezes Gastrointestinal: negative: soft, non-tender, non-distended, normal bowel sounds , no palpable masses, no hepatomegaly, no splenomegaly, no bruit, no guarding, no rigidity, tender to palpation, distended, diminished bowl sounds, voluntary guarding Hosp A/P (1) Acute metabolic encephalopathy Code(s): G93.41 - METABOLIC ENCEPHALOPATHY Status: Acute (2) Hypertension Code(s): I10 - ESSENTIAL (PRIMARY) HYPERTENSION Status: Acute Qualifiers: Hypertension type: essential hypertension Qualified Code(s): I10 - Essential (primary) hypertension (3) Sepsis Code(s): A41.9 - SEPSIS, UNSPECIFIED ORGANISM Status: Acute (4) Seizure Code(s): R56.9 - UNSPECIFIED CONVULSIONS Status: Chronic - Plan pt more awake today. He is hungry and wants to eat. speech called and they will reevaluate him. possible home in am.
[2019-10-20] MEDS: cefTRIAXone\\ROCEPHIN 1 GM in Sodium Chloride 0.9% 100 ML IVPB SCH (20:27)
[2019-10-20] MEDS: Donepezil HCl 10 MG TAB PO SCH (20:30)
[2019-10-20] MEDS: Pravastatin Sodium 20 MG TAB PO SCH (20:31)
[2019-10-21] MEDS: NS 0.9% w/ 40 MEQ KCL 1,000 ML IV SCH ×3 (05:09→20:43)
[2019-10-21] MEDS: levETIRAcetam 500 mg/5 ml Oral Solution PO SCH ×2 (08:47→20:31)
[2019-10-21] MEDS: Ferrous Sulfate 325 MG TAB PO SCH ×2 (08:48→20:31)
[2019-10-21] MEDS: Lisinopril 2.5 MG TAB PO SCH (08:48)
[2019-10-21] MEDS: Metoprolol Tartrate 25 MG TAB PO SCH ×2 (08:48→20:32)
[2019-10-21] MEDS: Multivitamin W/ Minerals 1 TAB PO SCH (08:49)
[2019-10-21] MEDS: Aspirin 81 mg Enteric Coated Tablet PO SCH (08:49)
[2019-10-21 09:01] LABS: #Basophils 0.1 thou/uL (0.0-0.2); #Eosinphils 0.4 thou/uL (0.0-0.7); #Lymphocytes 2.1 thou/uL (1.20-3.40); #Monocytes 0.6 thou/uL (0.11-0.59); %Basophils 1.2 % (0.0-1.0); %Eosinophils 5.3 % (0.0-10.0); %Lymphocytes 29.2 % (21.0-51.0); %Monocytes 8.3 % (0.0-10.0); Hemoglobin 11.5 g/dL (14.0-18.0); Mean Corpuscular HGB CONC 32.8 g/dL (32.0-36.0); Mean Corpuscular Hemoglobin 32.8 pg (27.0-31.0); Mean Platelet Volume 7.7 fL (7.4-10.4); Platelet Count 214 thou/uL (130-400); RBC Distribution Width 12.2 % (11.5-14.5); Red Blood Cell (RBC) Count 3.51 mill/uL (4.70-6.10); White Blood Cell (WBC) Count 7.1 thou/uL (4.8-10.8)
--- NOTE | 2019-10-21 11:09 | EKG ---
Test Reason : SEIZURES Blood Pressure : / mmHG Vent. Rate : 120 BPM Atrial Rate : 120 BPM P-R Int : 144 ms QRS Dur : 082 ms QT Int : 314 ms P-R-T Axes : 050 035 029 degrees QTc Int : 443 ms Sinus tachycardia with Premature atrial complexes Otherwise normal ECG Confirmed by KERRI SALTER ([id number]), material expeditor KATHY GAO ([id number]) on 10/21/2019 11:09:17 AM Referred By: Confirmed By:KERRI SALTER
--- NOTE | 2019-10-21 15:38 | PDOC.HOSPP ---
- Subjective Encounter Date: 10/21/19 Encounter Time: 10:30 Subjective: pt up in bed oriented x2 - Objective Vital Signs & Weight: Vital Signs (12 hours) Temp Pulse Resp BP BP Pulse Ox 10/21/19 11:33 98.1 F 58 L 16 159/75 H 95 10/21/19 08:48 79 146/70 H 10/21/19 08:46 93 L 10/21/19 07:05 98 F 79 16 146/70 H 93 L 10/21/19 03:37 98.1 F 60 18 171/79 H 95 Weight Admit Weight 92 lb 4.8 oz Weight 99 lb 1.6 oz I&O: 10/20/19 10/21/19 10/22/19 06:59 06:59 06:59 Intake Total 995 2400 Balance 995 2400 Result Diagrams: 10/21/19 08:53 10/16/19 03:59 Hospitalist ROS - Review of Systems Respiratory: denies: cough, dry, shortness of breath, hemoptysis, SOB with excertion, pleuritic pain, sputum, wheezing, other Cardiovascular: denies: chest pain, palpitations, orthopnea, paroxysmal noc. dyspnea, edema, light headedness, other Gastrointestinal: denies: nausea, vomiting, abdominal pain, diarrhea, constipation, melena, hematochezia, other - Medication Medications: Active Medications Generic Name Dose Route Start Last Admin Trade Name Freq PRN Reason Stop Dose Admin Aspirin 81 mg 10/16/19 09:00 10/21/19 08:49 Ecotrin PO 81 mg DAILY LILY Administration Cholecalciferol 2,000 units 10/17/19 09:00 10/21/19 08:49 Vitamin D3 PO 2,000 units DAILY LILY Administration Donepezil HCl 10 mg 10/15/19 21:00 10/20/19 20:30 Aricept PO 10 mg HS LILY Administration Ferrous Sulfate 325 mg 10/16/19 21:00 10/21/19 08:48 Feosol PO 325 mg BID LILY Administration Hydralazine HCl 10 mg 10/15/19 18:26 10/18/19 17:41 Apresoline SLOW IVP 10 mg Q4H PRN Administration SBP Greater Than 180 Ceftriaxone Sodium 1 gm/ 100 mls @ 200 mls/hr 10/15/19 20:00 10/20/19 20:27 Sodium Chloride IVPB 100 mls Q24HR LILY Administration Potassium Chloride/Sodium Chloride 1,000 mls @ 75 mls/hr 10/15/19 18:45 10/21 08:52 Ns 0.9% W/ 40 Meq Kcl IV 1,000 mls .[id number] LILY Administration Iron/Minerals/Multivitamins 1 tab 10/17/19 09:00 10/21/19 08:49 Theragran M PO 1 tab DAILY LILY Administration Levetiracetam 1,500 mg 10/18/19 21:00 10/21/19 08:47 Keppra Oral Solution PO 1,500 mg BID LILY Administration Lisinopril 2.5 mg 10/16/19 09:00 10/21/19 08:48 Zestril PO 2.5 mg DAILY LILY Administration Lorazepam 1 mg 10/15/19 18:24 10/17/19 00:05 Ativan SLOW IVP 1 mg Q15MIN PRN Administration Seizures Memantine 5 mg 10/16/19 09:00 10/21/19 08:49 Namenda PO 5 mg DAILY LILY Administration Memantine 10 mg 10/15/19 21:00 10/20/19 20:31 Namenda PO 10 mg HS LILY Administration Metoprolol Tartrate 12.5 mg 10/15/19 21:00 10/21/19 08:48 Lopressor PO 12.5 mg BID LILY Administration Pantoprazole Sodium 40 mg 10/16/19 09:00 10/21/19 08:49 Protonix PO 40 mg DAILY LILY Administration Pravastatin Sodium 20 mg 10/15/19 21:00 10/20/19 20:31 Pravachol PO 20 mg HS LILY Administration Quetiapine Fumarate 50 mg 10/15/19 21:00 10/20/19 20:31 Seroquel PO 50 mg HS LILY Administration Sodium Chloride 10 ml 10/15/19 21:00 10/21/19 08:50 Flush - Normal Saline IVF 10 ml Q12HR LILY Administration - Exam Heart: negative: RRR, no murmur, no gallops, no rubs, normal peripheral pulses, irregular, diminshed peripheral pulses, murmur present, II/IV, III/IV Respiratory: negative: CTAB, no wheezes, no rales, no ronchi, normal chest expansion, no tachypnea, normal percussion, rales, rhonchi, tachypneic, wheezes Gastrointestinal: negative: soft, non-tender, non-distended, normal bowel sounds , no palpable masses, no hepatomegaly, no splenomegaly, no bruit, no guarding, no rigidity, tender to palpation, distended, diminished bowl sounds, voluntary guarding Hosp A/P (1) Acute metabolic encephalopathy Code(s): G93.41 - METABOLIC ENCEPHALOPATHY Status: Acute (2) Hypertension Code(s): I10 - ESSENTIAL (PRIMARY) HYPERTENSION Status: Acute Qualifiers: Hypertension type: essential hypertension Qualified Code(s): I10 - Essential (primary) hypertension (3) Sepsis Code(s): A41.9 - SEPSIS, UNSPECIFIED ORGANISM Status: Acute (4) Seizure Code(s): R56.9 - UNSPECIFIED CONVULSIONS Status: Chronic - Plan pt more awake today. He is hungry and wants to eat. speech called and they will reevaluate him. possible home in am. 10/21 pt up in bed awake and oriented. Called pt daughter for possible discharge. will continue antiseizure meds.
[2019-10-21] MEDS: cefTRIAXone\\ROCEPHIN 1 GM in Sodium Chloride 0.9% 100 ML IVPB SCH (20:29)
[2019-10-21] MEDS: Donepezil HCl 10 MG TAB PO SCH (20:30)
[2019-10-21] MEDS: Pravastatin Sodium 20 MG TAB PO SCH (20:32)
[2019-10-22] MEDS: hydrALAZINE 20 MG/ML VIAL SLOW IVP PRN (04:18)
[2019-10-22] MEDS: Aspirin 81 mg Enteric Coated Tablet PO SCH (08:35)
[2019-10-22] MEDS: Metoprolol Tartrate 25 MG TAB PO SCH ×2 (08:35→20:32)
[2019-10-22] MEDS: Multivitamin W/ Minerals 1 TAB PO SCH (08:35)
[2019-10-22] MEDS: Lisinopril 2.5 MG TAB PO SCH (08:36)
[2019-10-22] MEDS: Ferrous Sulfate 325 MG TAB PO SCH ×2 (08:36→20:31)
[2019-10-22] MEDS: levETIRAcetam 500 mg/5 ml Oral Solution PO SCH ×2 (09:29→20:32)
[2019-10-22] MEDS ORDERED: Lisinopril 5 MG TAB PO SCH (09:45)
[2019-10-22] MEDS ORDERED: Amlodipine 10 MG TAB PO SCH (10:00)
[2019-10-22 10:30] LABS: #Basophils 0.1 thou/uL (0.0-0.2); #Eosinphils 0.2 thou/uL (0.0-0.7); #Lymphocytes 1.3 thou/uL (1.20-3.40); #Monocytes 0.5 thou/uL (0.11-0.59); #Neutrophils 5.3 thou/uL (1.40-6.50); %Basophils 1.1 % (0.0-1.0); %Eosinophils 2.8 % (0.0-10.0); %Lymphocytes 17.1 % (21.0-51.0); %Monocytes 7.3 % (0.0-10.0); %Neutrophils 71.7 % (42.0-75.0); Hemoglobin 12.8 g/dL (14.0-18.0); Mean Corpuscular HGB CONC 32.3 g/dL (32.0-36.0); Mean Corpuscular Hemoglobin 32.9 pg (27.0-31.0); Mean Platelet Volume 7.9 fL (7.4-10.4); Platelet Count 216 thou/uL (130-400); RBC Distribution Width 12.3 % (11.5-14.5); Red Blood Cell (RBC) Count 3.87 mill/uL (4.70-6.10); White Blood Cell (WBC) Count 7.4 thou/uL (4.8-10.8)
[2019-10-22 10:35] LABS: Anion Gap 12 mmol/L (10-20); BUN (Urea Nitrogen) 6 mg/dL (8.4-25.7); Calc. Creatinine Clearance 52 mL/min (70-130); Calcium 8.6 mg/dL (7.8-10.44); Carbon Dioxide 22 mmol/L (23-31); Chloride 108 mmol/L (98-107); Estimated GFR-MDRD Greater than 90; Glucose 119 mg/dL (83-110); Potassium 4.1 mmol/L (3.5-5.1); Sodium 138 mmol/L (136-145)
--- NOTE | 2019-10-22 14:35 | PDOC.HOSPP ---
- Subjective Encounter Date: 10/22/19 Encounter Time: 13:00 Subjective: pt up in bed wants to go home. - Objective Vital Signs & Weight: Vital Signs (12 hours) Temp Pulse Resp BP BP BP Pulse Ox 10/22/19 11:29 97.9 F 66 17 142/72 H 96 10/22/19 11:20 84 194/88 H 10/22/19 08:36 84 194/88 H 10/22/19 08:00 96 10/22/19 07:16 98.4 F 84 17 194/88 H 96 10/22/19 05:18 63 148/65 H 10/22/19 04:18 63 210/90 H 10/22/19 04:00 97.7 F 63 20 206/68 H 96 Weight Admit Weight 92 lb 4.8 oz Weight 95 lb 6.4 oz I&O: 10/21/19 10/22/19 10/23/19 06:59 06:59 06:59 Intake Total 2400 2400 220 Output Total 200 Balance 2400 2200 220 Result Diagrams: 10/22/19 10:14 10/22/19 10:14 Hospitalist ROS - Review of Systems Respiratory: denies: cough, dry, shortness of breath, hemoptysis, SOB with excertion, pleuritic pain, sputum, wheezing, other Cardiovascular: denies: chest pain, palpitations, orthopnea, paroxysmal noc. dyspnea, edema, light headedness, other Gastrointestinal: denies: nausea, vomiting, abdominal pain, diarrhea, constipation, melena, hematochezia, other Genitourinary: denies: dysuria, frequency, incontinence, hematuria, retention, other - Medication Medications: Active Medications Generic Name Dose Route Start Last Admin Trade Name Mumtazq PRN Reason Stop Dose Admin Aspirin 81 mg 10/16/19 09:00 10/22/19 08:35 Ecotrin PO 81 mg DAILY LILY Administration Cholecalciferol 2,000 units 10/17/19 09:00 10/22/19 08:35 Vitamin D3 PO 2,000 units DAILY LILY Administration Donepezil HCl 10 mg 10/15/19 21:00 10/21/19 20:30 Aricept PO 10 mg HS LILY Administration Ferrous Sulfate 325 mg 10/16/19 21:00 10/22/19 08:36 Feosol PO 325 mg BID LILY Administration Hydralazine HCl 10 mg 10/15/19 18:26 10/22/19 04:18 Apresoline SLOW IVP 10 mg Q4H PRN Administration SBP Greater Than 180 Ceftriaxone Sodium 1 gm/ 100 mls @ 200 mls/hr 10/15/19 20:00 10/21/19 20:29 Sodium Chloride IVPB 10/23/19 20:00 100 mls Q24HR LILY Administration Potassium Chloride/Sodium Chloride 1,000 mls @ 75 mls/hr 10/15/19 18:45 10/21 20:43 Ns 0.9% W/ 40 Meq Kcl IV 1,000 mls .[id number] LILY Administration Iron/Minerals/Multivitamins 1 tab 10/17/19 09:00 10/22/19 08:35 Theragran M PO 1 tab DAILY LILY Administration Levetiracetam 1,500 mg 10/18/19 21:00 10/22/19 09:29 Keppra Oral Solution PO 1,500 mg BID LILY Administration Lorazepam 1 mg 10/15/19 18:24 10/17/19 00:05 Ativan SLOW IVP 1 mg Q15MIN PRN Administration Seizures Memantine 5 mg 10/16/19 09:00 10/22/19 08:36 Namenda PO 5 mg DAILY LILY Administration Memantine 10 mg 10/15/19 21:00 10/21/19 20:31 Namenda PO 10 mg HS LILY Administration Metoprolol Tartrate 12.5 mg 10/15/19 21:00 10/22/19 08:35 Lopressor PO 12.5 mg BID LILY Administration Pantoprazole Sodium 40 mg 10/16/19 09:00 10/22/19 08:36 Protonix PO 40 mg DAILY LILY Administration Pravastatin Sodium 20 mg 10/15/19 21:00 10/21/19 20:32 Pravachol PO 20 mg HS LILY Administration Quetiapine Fumarate 50 mg 10/15/19 21:00 10/21/19 20:32 Seroquel PO 50 mg HS LILY Administration Sodium Chloride 10 ml 10/15/19 21:00 10/22/19 09:29 Flush - Normal Saline IVF Not Given Q12HR LILY - Exam Neck: negative: supple, symmetric, no JVD, no thyromegaly, no lymphadenopathy, no carotid bruit, JVD Heart: negative: RRR, no murmur, no gallops, no rubs, normal peripheral pulses, irregular, diminshed peripheral pulses, murmur present, II/IV, III/IV Respiratory: negative: CTAB, no wheezes, no rales, no ronchi, normal chest expansion, no tachypnea, normal percussion, rales, rhonchi, tachypneic, wheezes Hosp A/P (1) Acute metabolic encephalopathy Code(s): G93.41 - METABOLIC ENCEPHALOPATHY Status: Acute (2) Hypertension Code(s): I10 - ESSENTIAL (PRIMARY) HYPERTENSION Status: Acute Qualifiers: Hypertension type: essential hypertension Qualified Code(s): I10 - Essential (primary) hypertension (3) Sepsis Code(s): A41.9 - SEPSIS, UNSPECIFIED ORGANISM Status: Acute (4) Seizure Code(s): R56.9 - UNSPECIFIED CONVULSIONS Status: Chronic (5) UTI (urinary tract infection) Status: Acute - Plan pt more awake today. He is hungry and wants to eat. speech called and they will reevaluate him. possible home in am. 10/21 pt up in bed awake and oriented. Called pt daughter for possible discharge. will continue antiseizure meds. 10/22 spoke with daughter this am on the phone about pt's improvement. she came in to see the patient and did not feel comfortable taking the pt back home. pt lives with his daughter who works 2 jobs and he is home alone. I have advised her that she will have to make sure he takes his meds not just to leave it out for him to take. I also informed her that we have been feeding him and will most likely at times need to be fed. I also explained to her that his mentation will worsen and he may need close monitoring or permanent placement. pt daughter does not feel comfortable taking the pt home, she wants pt to go to SNF. He will complete his 7 days of abx.
[2019-10-22] MEDS: NS 0.9% w/ 40 MEQ KCL 1,000 ML IV SCH (16:36)
[2019-10-22] MEDS: cefTRIAXone\\ROCEPHIN 1 GM in Sodium Chloride 0.9% 100 ML IVPB SCH (20:30)
[2019-10-22] MEDS: Donepezil HCl 10 MG TAB PO SCH (20:31)
[2019-10-22] MEDS: Pravastatin Sodium 20 MG TAB PO SCH (20:32)
[2019-10-23] MEDS: levETIRAcetam 500 mg/5 ml Oral Solution PO SCH ×2 (09:06→20:20)
[2019-10-23] MEDS: Aspirin 81 mg Enteric Coated Tablet PO SCH (09:07)
[2019-10-23] MEDS: Metoprolol Tartrate 25 MG TAB PO SCH ×2 (09:07→20:20)
[2019-10-23] MEDS: Lisinopril 10 MG TAB PO SCH (09:07)
[2019-10-23] MEDS: Ferrous Sulfate 325 MG TAB PO SCH ×2 (09:07→20:20)
[2019-10-23] MEDS: Amlodipine 10 MG TAB PO SCH (09:07)
[2019-10-23] MEDS: Multivitamin W/ Minerals 1 TAB PO SCH (09:08)
--- NOTE | 2019-10-23 09:38 | PDOC.HOSPP ---
- Subjective Encounter Date: 10/23/19 Encounter Time: 11:00 Subjective: Patient awake, alert, oriented to person, place, situation, uncertain of date/ year. No complaints. - Objective Vital Signs & Weight: Vital Signs (12 hours) Temp Pulse Resp BP BP BP Pulse Ox 10/23/19 09:07 75 134/73 10/23/19 07:34 98.1 F 75 18 134/73 94 L 10/23/19 03:26 97.4 F L 60 20 158/77 H 95 10/23/19 00:00 98.0 F 62 20 163/65 H 97 Weight Admit Weight 92 lb 4.8 oz Weight 89 lb 12.8 oz I&O: 10/22/19 10/23/19 10/24/19 06:59 06:59 06:59 Intake Total 2400 440 Output Total 200 Balance 2200 440 Result Diagrams: 10/22/19 10:14 10/22/19 10:14 Hospitalist ROS - Review of Systems Constitutional: denies: fever, chills Respiratory: denies: cough, shortness of breath Cardiovascular: denies: chest pain, palpitations, orthopnea Gastrointestinal: denies: nausea, vomiting, abdominal pain Genitourinary: denies: dysuria, hematuria - Medication Medications: Active Medications Generic Name Dose Route Start Last Admin Trade Name Freq PRN Reason Stop Dose Admin Amlodipine Besylate 10 mg 10/23/19 09:00 10/23/19 09:07 Norvasc PO 10 mg DAILY LILY Administration Aspirin 81 mg 10/16/19 09:00 10/23/19 09:07 Ecotrin PO 81 mg DAILY LILY Administration Cholecalciferol 2,000 units 10/17/19 09:00 10/23/19 09:06 Vitamin D3 PO 2,000 units DAILY LILY Administration Donepezil HCl 10 mg 10/15/19 21:00 10/22/19 20:31 Aricept PO 10 mg HS LILY Administration Ferrous Sulfate 325 mg 10/16/19 21:00 10/23/19 09:07 Feosol PO 325 mg BID LILY Administration Hydralazine HCl 10 mg 10/15/19 18:26 10/22/19 04:18 Apresoline SLOW IVP 10 mg Q4H PRN Administration SBP Greater Than 180 Ceftriaxone Sodium 1 gm/ 100 mls @ 200 mls/hr 10/15/19 20:00 10/22/19 20:30 Sodium Chloride IVPB 10/23/19 20:00 100 mls Q24HR LILY Administration Iron/Minerals/Multivitamins 1 tab 10/17/19 09:00 10/23/19 09:08 Theragran M PO 1 tab DAILY LILY Administration Levetiracetam 1,500 mg 10/18/19 21:00 10/23/19 09:06 Keppra Oral Solution PO 1,500 mg BID LILY Administration Lisinopril 10 mg 10/23/19 09:00 10/23/19 09:07 Zestril PO 10 mg DAILY LILY Administration Lorazepam 1 mg 10/15/19 18:24 10/17/19 00:05 Ativan SLOW IVP 1 mg Q15MIN PRN Administration Seizures Memantine 5 mg 10/16/19 09:00 10/23/19 09:08 Namenda PO 5 mg DAILY LILY Administration Memantine 10 mg 10/15/19 21:00 10/22/19 20:32 Namenda PO 10 mg HS LILY Administration Metoprolol Tartrate 12.5 mg 10/15/19 21:00 10/23/19 09:07 Lopressor PO 12.5 mg BID LILY Administration Pantoprazole Sodium 40 mg 10/16/19 09:00 10/23/19 09:07 Protonix PO 40 mg DAILY LILY Administration Pravastatin Sodium 20 mg 10/15/19 21:00 10/22/19 20:32 Pravachol PO 20 mg HS LILY Administration Quetiapine Fumarate 50 mg 10/15/19 21:00 10/22/19 20:32 Seroquel PO 50 mg HS LILY Administration Sodium Chloride 10 ml 10/15/19 21:00 10/23/19 09:08 Flush - Normal Saline IVF 10 ml Q12HR LILY Administration - Exam General Appearance: NAD, awake alert ENT: moist mucosa Heart: RRR, no murmur, no gallops, no rubs Respiratory: CTAB, no wheezes, no rales, no ronchi Gastrointestinal: soft, non-tender, non-distended, normal bowel sounds Psychiatric: normal affect, normal behavior, oriented to person, oriented to place. negative: oriented to time Hosp A/P (1) Seizure Code(s): R56.9 - UNSPECIFIED CONVULSIONS Status: Chronic (2) UTI (urinary tract infection) Status: Resolved (3) Sepsis Code(s): A41.9 - SEPSIS, UNSPECIFIED ORGANISM Status: Resolved (4) Hypertension Code(s): I10 - ESSENTIAL (PRIMARY) HYPERTENSION Status: Chronic Qualifiers: Hypertension type: essential hypertension Qualified Code(s): I10 - Essential (primary) hypertension (5) Hypokalemia Code(s): E87.6 - HYPOKALEMIA Status: Resolved (6) Acute metabolic encephalopathy Code(s): G93.41 - METABOLIC ENCEPHALOPATHY Status: Acute Plan: improved (7) Dementia Code(s): F03.90 - UNSPECIFIED DEMENTIA WITHOUT BEHAVIORAL DISTURBANCE Status: Chronic - Plan Patient improved, mental status cleared but with underlying progressive dementia Needing assistance with eating and taking meds. Daughter unable to do this at home. Trying to arrange SNF placement. DVT proph: SCDs
[2019-10-23] MEDS: cefTRIAXone\\ROCEPHIN 1 GM in Sodium Chloride 0.9% 100 ML IVPB SCH (20:14)
[2019-10-23] MEDS: Donepezil HCl 10 MG TAB PO SCH (20:20)
[2019-10-23] MEDS: Pravastatin Sodium 20 MG TAB PO SCH (20:21)
--- NOTE | 2019-10-24 08:12 | PDOC.HOSPP ---
- Subjective Encounter Date: 10/24/19 Encounter Time: 10:40 Subjective: Patient unchanged, likely baseline mental status with mild confusion from dementia. - Objective Vital Signs & Weight: Vital Signs (12 hours) Temp Pulse Resp BP BP Pulse Ox 10/24/19 07:51 97.5 F L 74 20 127/70 96 10/24/19 04:00 97.4 F L 71 18 108/50 L 93 L 10/24/19 00:00 97.7 F 64 18 102/58 L 96 Weight Admit Weight 92 lb 4.8 oz Weight 95 lb 8 oz I&O: 10/23/19 10/24/19 10/25/19 06:59 06:59 06:59 Intake Total 440 630 Balance 440 630 Result Diagrams: 10/22/19 10:14 10/22/19 10:14 Hospitalist ROS - Review of Systems Constitutional: denies: fever Respiratory: denies: cough, shortness of breath Cardiovascular: denies: chest pain, palpitations, orthopnea Gastrointestinal: denies: nausea, vomiting, abdominal pain Genitourinary: denies: dysuria, hematuria - Medication Medications: Active Medications Generic Name Dose Route Start Last Admin Trade Name Freq PRN Reason Stop Dose Admin Amlodipine Besylate 10 mg 10/23/19 09:00 10/23/19 09:07 Norvasc PO 10 mg DAILY LILY Administration Aspirin 81 mg 10/16/19 09:00 10/23/19 09:07 Ecotrin PO 81 mg DAILY LILY Administration Cholecalciferol 2,000 units 10/17/19 09:00 10/23/19 09:06 Vitamin D3 PO 2,000 units DAILY LILY Administration Donepezil HCl 10 mg 10/15/19 21:00 10/23/19 20:20 Aricept PO 10 mg HS LILY Administration Ferrous Sulfate 325 mg 10/16/19 21:00 10/23/19 20:20 Feosol PO 325 mg BID LILY Administration Hydralazine HCl 10 mg 10/15/19 18:26 10/22/19 04:18 Apresoline SLOW IVP 10 mg Q4H PRN Administration SBP Greater Than 180 Iron/Minerals/Multivitamins 1 tab 10/17/19 09:00 10/23/19 09:08 Theragran M PO 1 tab DAILY LILY Administration Levetiracetam 1,500 mg 10/18/19 21:00 10/23/19 20:20 Keppra Oral Solution PO 1,500 mg BID LILY Administration Lisinopril 10 mg 10/23/19 09:00 10/23/19 09:07 Zestril PO 10 mg DAILY LILY Administration Lorazepam 1 mg 10/15/19 18:24 10/17/19 00:05 Ativan SLOW IVP 1 mg Q15MIN PRN Administration Seizures Memantine 5 mg 10/16/19 09:00 10/23/19 09:08 Namenda PO 5 mg DAILY LILY Administration Memantine 10 mg 10/15/19 21:00 10/23/19 20:20 Namenda PO 10 mg HS LILY Administration Metoprolol Tartrate 12.5 mg 10/15/19 21:00 10/23/19 20:20 Lopressor PO 12.5 mg BID LILY Administration Pantoprazole Sodium 40 mg 10/16/19 09:00 10/23/19 09:07 Protonix PO 40 mg DAILY LILY Administration Pravastatin Sodium 20 mg 10/15/19 21:00 10/23/19 20:21 Pravachol PO 20 mg HS LILY Administration Quetiapine Fumarate 50 mg 10/15/19 21:00 10/23/19 20:21 Seroquel PO 50 mg HS LILY Administration Sodium Chloride 10 ml 10/15/19 21:00 10/23/19 20:16 Flush - Normal Saline IVF 10 ml Q12HR LILY Administration - Exam General Appearance: NAD ENT: moist mucosa Heart: RRR, no murmur, no gallops, no rubs Respiratory: CTAB, no wheezes, no rales, no ronchi Gastrointestinal: soft, non-tender, non-distended, normal bowel sounds Psychiatric: normal affect Psychiatric - other findings: sleeping, easily arousable Hosp A/P (1) Seizure Code(s): R56.9 - UNSPECIFIED CONVULSIONS Status: Chronic (2) UTI (urinary tract infection) Status: Resolved (3) Sepsis Code(s): A41.9 - SEPSIS, UNSPECIFIED ORGANISM Status: Resolved (4) Hypertension Code(s): I10 - ESSENTIAL (PRIMARY) HYPERTENSION Status: Chronic Qualifiers: Hypertension type: essential hypertension Qualified Code(s): I10 - Essential (primary) hypertension (5) Hypokalemia Code(s): E87.6 - HYPOKALEMIA Status: Resolved (6) Acute metabolic encephalopathy Code(s): G93.41 - METABOLIC ENCEPHALOPATHY Status: Acute (7) Dementia Code(s): F03.90 - UNSPECIFIED DEMENTIA WITHOUT BEHAVIORAL DISTURBANCE Status: Chronic - Plan Patient improved, mental status cleared but with underlying progressive dementia Needing assistance with eating and taking meds. Daughter unable to do this at home. Trying to arrange SNF placement. DVT proph: SCDs
[2019-10-24] MEDS: Ferrous Sulfate 325 MG TAB PO SCH ×2 (08:21→20:47)
[2019-10-24] MEDS: Aspirin 81 mg Enteric Coated Tablet PO SCH (08:21)
[2019-10-24] MEDS: Multivitamin W/ Minerals 1 TAB PO SCH (08:21)
[2019-10-24] MEDS: levETIRAcetam 500 mg/5 ml Oral Solution PO SCH ×2 (11:13→20:45)
[2019-10-24] MEDS: Amlodipine 10 MG TAB PO SCH (11:15)
[2019-10-24] MEDS: Metoprolol Tartrate 25 MG TAB PO SCH ×2 (11:15→20:47)
[2019-10-24] MEDS: Lisinopril 10 MG TAB PO SCH (11:15)
[2019-10-24] MEDS: Donepezil HCl 10 MG TAB PO SCH (20:47)
[2019-10-24] MEDS: Pravastatin Sodium 20 MG TAB PO SCH (20:48)
[2019-10-25] MEDS: Metoprolol Tartrate 25 MG TAB PO SCH (08:29)
[2019-10-25] MEDS: Amlodipine 10 MG TAB PO SCH (08:29)
[2019-10-25] MEDS: Ferrous Sulfate 325 MG TAB PO SCH (08:30)
[2019-10-25] MEDS: Multivitamin W/ Minerals 1 TAB PO SCH (08:30)
[2019-10-25] MEDS: Aspirin 81 mg Enteric Coated Tablet PO SCH (08:30)
[2019-10-25] MEDS: levETIRAcetam 500 mg/5 ml Oral Solution PO SCH (08:31)
[2019-10-25] MEDS: Lisinopril 10 MG TAB PO SCH (08:31)
--- NOTE | 2019-10-25 10:07 | PDOC.HOSPP ---
- Subjective Encounter Date: 10/25/19 Encounter Time: 12:00 Subjective: No events overnight. Patient awake, eating lunch, no complaints. - Objective Vital Signs & Weight: Vital Signs (12 hours) Temp Pulse Resp BP BP Pulse Ox 10/25/19 08:31 146/69 H 10/25/19 08:29 74 146/69 H 10/25/19 08:00 95 10/25/19 07:57 97.7 F 74 20 146/69 H 95 Weight Admit Weight 92 lb 4.8 oz Weight 95 lb 8 oz I&O: 10/24/19 10/25/19 10/26/19 06:59 06:59 06:59 Intake Total 630 Balance 630 Result Diagrams: 10/22/19 10:14 10/22/19 10:14 Hospitalist ROS - Review of Systems Constitutional: denies: fever, chills Respiratory: denies: cough, shortness of breath Cardiovascular: denies: chest pain, palpitations Gastrointestinal: denies: nausea, vomiting, abdominal pain - Medication Medications: Active Medications Generic Name Dose Route Start Last Admin Trade Name Freq PRN Reason Stop Dose Admin Amlodipine Besylate 10 mg 10/23/19 09:00 10/25/19 08:29 Norvasc PO 10 mg DAILY LILY Administration Aspirin 81 mg 10/16/19 09:00 10/25/19 08:30 Ecotrin PO 81 mg DAILY LILY Administration Cholecalciferol 2,000 units 10/17/19 09:00 10/25/19 08:28 Vitamin D3 PO 2,000 units DAILY LILY Administration Donepezil HCl 10 mg 10/15/19 21:00 10/24/19 20:47 Aricept PO 10 mg HS LILY Administration Ferrous Sulfate 325 mg 10/16/19 21:00 10/25/19 08:30 Feosol PO 325 mg BID LILY Administration Hydralazine HCl 10 mg 10/15/19 18:26 10/22/19 04:18 Apresoline SLOW IVP 10 mg Q4H PRN Administration SBP Greater Than 180 Iron/Minerals/Multivitamins 1 tab 10/17/19 09:00 10/25/19 08:30 Theragran M PO 1 tab DAILY LILY Administration Levetiracetam 1,500 mg 10/18/19 21:00 10/25/19 08:31 Keppra Oral Solution PO 1,500 mg BID LILY Administration Lisinopril 10 mg 10/23/19 09:00 10/25/19 08:31 Zestril PO 10 mg DAILY LILY Administration Lorazepam 1 mg 10/15/19 18:24 10/17/19 00:05 Ativan SLOW IVP 1 mg Q15MIN PRN Administration Seizures Memantine 5 mg 10/16/19 09:00 10/25/19 08:31 Namenda PO 5 mg DAILY LILY Administration Memantine 10 mg 10/15/19 21:00 10/24/19 20:48 Namenda PO 10 mg HS LILY Administration Metoprolol Tartrate 12.5 mg 10/15/19 21:00 10/25/19 08:29 Lopressor PO 12.5 mg BID LILY Administration Pantoprazole Sodium 40 mg 10/16/19 09:00 10/25/19 08:29 Protonix PO 40 mg DAILY LILY Administration Pravastatin Sodium 20 mg 10/15/19 21:00 10/24/19 20:48 Pravachol PO 20 mg HS LILY Administration Quetiapine Fumarate 50 mg 10/15/19 21:00 10/24/19 20:46 Seroquel PO 50 mg HS LILY Administration Sodium Chloride 10 ml 10/15/19 21:00 10/25/19 08:34 Flush - Normal Saline IVF 10 ml Q12HR LILY Administration - Exam General Appearance: NAD, awake alert ENT: moist mucosa Heart: RRR, no murmur, no gallops, no rubs Respiratory: CTAB, no wheezes, no rales, no ronchi Gastrointestinal: soft, non-tender, non-distended, normal bowel sounds Musculoskeletal: diffuse muscle atrophy Psychiatric: normal affect, normal behavior Hosp A/P (1) Seizure Code(s): R56.9 - UNSPECIFIED CONVULSIONS Status: Chronic (2) UTI (urinary tract infection) Status: Resolved (3) Sepsis Code(s): A41.9 - SEPSIS, UNSPECIFIED ORGANISM Status: Resolved (4) Hypertension Code(s): I10 - ESSENTIAL (PRIMARY) HYPERTENSION Status: Chronic Qualifiers: Hypertension type: essential hypertension Qualified Code(s): I10 - Essential (primary) hypertension (5) Hypokalemia Code(s): E87.6 - HYPOKALEMIA Status: Resolved (6) Acute metabolic encephalopathy Code(s): G93.41 - METABOLIC ENCEPHALOPATHY Status: Acute (7) Dementia Code(s): F03.90 - UNSPECIFIED DEMENTIA WITHOUT BEHAVIORAL DISTURBANCE Status: Chronic - Plan Patient improved, mental status cleared but with underlying progressive dementia Needing assistance with eating and taking meds. Daughter unable to do this at home. Will go to SNF once arranged this afternoon. DVT proph: SCDs
[2019-10-25 10:58] VITALS: BP 105/63; TEMP 98.1
[2019-10-25 12:30] VITALS: BMI 18.0
--- NOTE | 2019-10-25 15:35 | DIS ---
DATE OF ADMISSION: 10/16/2019 DATE OF DISCHARGE: 10/25/2019 PRIMARY CARE PHYSICIAN: Hoang Armijo. REASON FOR ADMISSION: Seizure. DIAGNOSES AT DISCHARGE: 1. Seizure disorder. 2. Urinary tract infection, resolved. 3. Sepsis, resolved. 4. Hypertension. 5. Hypokalemia, resolved. 6. Acute metabolic encephalopathy from seizures, resolved. 7. Dementia. 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 CONSULTATIONS: None. SUMMARY OF HOSPITAL COURSE: This is an 84-year-old male with a history of strokes and dementia, who is taken care of by his daughter at home, but she has to work and leaves his medicines for him, but he often does not take them, so he has been noncompliant with his seizure medications. He was getting out of the shower and leaned back and his daughter witnessed that he had two seizures in a row that lasted a few minutes. He has not had any seizures since 2017. He was brought in to the emergency room. On the way, he received Ativan 2 mg x2, was also very hypertensive and so received metoprolol IV. CT scan showed no acute findings. His urinalysis was positive for UTI and he was tachycardic on admission along with a white blood cell count of 11.6, so he was thought to have evidence of sepsis. He was put on antibiotics. The patient had a very slow recovery from the seizure. There was concern that maybe there was some metabolic encephalopathic component perhaps from infection or some other etiology. However, on discussing with Dr. Jacques, who has seen the patient before, and with discussion with the family, the patient actually takes about 2 days to wake up normally from a seizure. He also received some medication for agitation a couple of days in the hospitalization. With further observation, the patient cleared completely, came back to his normal mental status knowing who he was and where he was, but a little disoriented about the time and situation. This is his baseline dementia status. The patient completed antibiotic course for his E coli UTI that was discontinued. He was starting to the eat well and move around well with assistance from nursing and physical therapy. On discussing with the daughter, she states that she can no longer take care of him at home and has worsened mental status and physical status from his progressive dementia. As a result, we arranged for him to have placement to the assisted facility. He is being discharged there now. DISCHARGE MANAGEMENT: Discharged to assisted facility. ACTIVITY: As tolerated. DIET: Healthy heart diet with textures of NDD3 chopped, extra sauce and gravy, thin liquids with small sips by cup and controlled sips by straw. THERAPY: Occupational, physical, and speech therapy. FOLLOWUP: Follow up with primary care physician after out of the assisted facility or with residential doctor. MEDICATIONS: 1. Amlodipine 10 mg daily. 2. Lisinopril 20 mg daily. 3. Aspirin 81 mg daily. 4. Vitamin D3, 2000 units daily. 5. Aricept 5 mg at night. 6. Ferrous sulfate 325 mg twice a day. 7. Keppra 1500 mg twice a day. 8. Namenda per home dosing. 9. Metoprolol tartrate 12.5 mg twice a day. 10. Multivitamin daily. 11. Protonix 40 mg daily. 12. Pravastatin 20 mg daily. 13. Seroquel 50 mg at night. TIME SPENT: Arranging the details of this discharge took less than 30 minutes. Job ID: [id number]
== END 2019-10-25 15:49 | DRG 871 ==
LOC: ERS 15:41 → 2NO 21:00 → OBSVTOIN 10-16 11:18 → T4-A 10-19 19:57
PROVIDERS: ADMIT Family Medicine; ATTEND Family Medicine
DX: A41.51 Sepsis due to Escherichia coli [E. coli] (principal); G93.41 Metabolic encephalopathy; N39.0 Urinary tract infection, site not specified; I42.9 Cardiomyopathy, unspecified; G40.909 Epilepsy, unspecified, not intractable, without status epilepticus; I10 Essential (primary) hypertension; E87.6 Hypokalemia; F03.90 Unspecified dementia, unspecified severity, without behavioral disturbance, psychotic disturbance, mood disturbance, and anxiety; E78.5 Hyperlipidemia, unspecified; K21.9 Gastro-esophageal reflux disease without esophagitis; Z79.899 Other long term (current) drug therapy; Z79.82 Long term (current) use of aspirin; Z90.49 Acquired absence of other specified parts of digestive tract
CPT/HCPCS: 36415; 51701; 70450; 80048; 80053; 81003; 81015; 84484; 85025; 87077; 87086; 87186; 93005; 94760; 96361; 96374; J0360; J0696; J1953; J2060; J2270; J2405; J3480; J3490